=== PATIENT | male | born 1975 | race Caucasian/White ===

== ENCOUNTER 2022-12-12 13:23 | Emergency (ER) | payer OTHER ==
[2022-12-12 14:09] VITALS: BMI 42.5
[2022-12-12] MEDS ORDERED: KETOROLAC TROMETHAMINE 15 MG/ML VIAL IVPUSH ONE (14:22)
[2022-12-12] MEDS ORDERED: SODIUM CHLORIDE 0.9% 500 ML INFUS.BAG IV ONE (14:22)
[2022-12-12] MEDS ORDERED: KETOROLAC TROMETHAMINE 15 MG/ML VIAL ONE (14:34)
[2022-12-12 14:53] LABS: HEMATOCRIT 43.6 % (35.4-49); HEMOGLOBIN 14.8 G/dL (11.7-16.9); MCH 29.4 pg (25.7-33.7); MCHC 33.9 g/dl (32.0-35.9); MEAN CELL VOLUME 86.9 fl (80-96); MEAN PLT VOLUME 6.9 fl (7.5-11.1); RBC 5.02 10^6/uL (4.00-5.60); WHITE BLOOD COUNT 11.4 10^3/uL (4.0-10.8)
[2022-12-12 15:01] LABS: ALBUMIN 4.4 g/dl (3.4-5.0); BILIRUBIN,TOTAL 0.4 mg/dl (0.2-1); BLOOD UREA NITROGEN 16.6 mg/dl (7-18); CREATININE 0.9 mg/dl (0.6-1.3); POTASSIUM 3.7 mmol/L (3.5-5.1); SGPT/ALT 47.8 U/L (7-52); TOT PROT 6.9 g/dl (6.4-8.2)
[2022-12-12 15:46] VITALS: BP 131/75; PULSE 89; RESP 16; TEMP 99
== END 2022-12-12 18:00 | disposition home or self-care (01) ==
LOC: FER 13:23
PROC: 3E0333Z Introduction of Anti-inflammatory into Peripheral Vein, Percutaneous Approach (ICD-10-PCS; principal; 2022-12-12)
DX: R05.9 Cough, unspecified (principal); R50.9 Fever, unspecified; M79.10 Myalgia, unspecified site; J18.9 Pneumonia, unspecified organism; R00.0 Tachycardia, unspecified; R91.8 Other nonspecific abnormal finding of lung field; Z20.822 Contact with and (suspected) exposure to COVID-19
CPT/HCPCS: 0241U-QW; 36415; 71046-TC-FY; 71250-TC; 80053; 84484; 85027; 93005; 99285-25